=== PATIENT | female | born 1970 | race Caucasian/White ===

== ENCOUNTER → 2017-04-07 | Outpatient (CLI) | payer BC ==
--- NOTE | 2017-04-08 07:24 | MM ---
Reason for exam: clinical finding. Last mammogram was performed 4 years and 7 months ago. Physical Findings: Nurse Summary: A 1cm nodule in the right breast at 12:30 (nursedw). [facility] Diagnostic Mammo w CAD LUIS Bilateral CC and MLO view(s) were taken. Prior study comparison: August 25, 2012, bilateral digital screening mammo w/CAD. The breast tissue is heterogeneously dense. This may lower the sensitivity of mammography. Finding: There is a 12 mm obscured oval mass in the upper inner quadrant, anterior position of the right breast, skin based. These results were verbally communicated with the patient and result sheet given to the patient on 04/07/17. ASSESSMENT: Incomplete: need additional imaging evaluation, BI-RAD 0 RECOMMENDATION: Ultrasound of the right breast.
--- NOTE | 2017-04-08 07:35 | USB ---
Reason for exam: clinical finding. US Breast Limited RT Right breast ultrasound demonstrates a 15 x 5 x 13mm oval, subcutaneous, vascular structure at 12-1 o'clock. These results were verbally communicated with the patient and result sheet given to the patient on 04/07/17. ASSESSMENT: Probably benign, BI-RAD 3 RECOMMENDATION: Ultrasound of the right breast in 3 months. (Consider repeat ultrasound). Manage patient on a clinical basis.
== END | disposition home or self-care (01) ==
LOC: RADMAMWWP 14:48
PROVIDERS: ATTEND Family Medicine
DX: N63 Unspecified lump in breast (principal)
CPT/HCPCS: 76642; G0204

== ENCOUNTER 2017-04-11 13:22 | Emergency (ER) | payer BC ==
[2017-04-11 13:44] VITALS: BP 111/75; PULSE 68; RESP 16; TEMP 96.7
[2017-04-11] MEDS ORDERED: TOPICAL SKIN ADHESIVE 1 EACH AMP TOPICAL ONE (14:00)
--- NOTE | 2017-04-11 14:09 | ED ---
Wound/Laceration HPI - General Chief Complaint: Wound/Laceration Stated Complaint: laceration right pinky Time Seen by Provider: 04/11/17 13:45 Source: patient, RN notes reviewed, old records reviewed Mode of arrival: ambulatory Limitations: no limitations - History of Present Illness Initial Comments: 46-year-old female presents emergency room chief complaint of a laceration over the distal end of her right pinky. Patient reports that she cut it while she was washing dishes. She denies any fever or chills or associates patient reports she has full range of motion of the finger but it is painful whenever she bends the distal end because the wound stretches. She denies any peripheral paresthesias. She reports her tetanus shot is up-to-date.Patient denies any recent fever, chills, shortness of breath, chest pain, back pain, abdominal pain, nausea vomiting, numbness or tingling, dysuria or hematuria, constipation or diarrhea, headaches or visual changes, or any other current symptoms - Related Data Allergies Allergy/AdvReac Type Severity Reaction Status Date / Time No Known Allergies Allergy Verified 04/07/17 15:17 Review of Systems ROS Statement: Those systems with pertinent positive or pertinent negative responses have been documented in the HPI. ROS Other: All systems not noted in ROS Statement are negative. Past Medical History Additional Past Medical History / Comment(s): Migraine headaches History of Any Multi-Drug Resistant Organisms: None Reported Past Surgical History: Section, Cholecystectomy, Uterine Ablation Smoking Status: Never smoker Past Alcohol Use History: Occasional Past Drug Use History: None Reported General Exam - General Exam Comments Initial Comments: Well-appearing 46 old female. No acute distress. Limitations: no limitations General appearance: alert, in no apparent distress Head exam: Present: atraumatic, normocephalic, normal inspection Eye exam: Present: normal appearance, PERRL, EOMI. Absent: scleral icterus, conjunctival injection, periorbital swelling ENT exam: Present: normal exam, mucous membranes moist Neck exam: Present: normal inspection. Absent: tenderness, meningismus, lymphadenopathy Respiratory exam: Present: normal lung sounds bilaterally. Absent: respiratory distress, wheezes, rales, rhonchi, stridor Cardiovascular Exam: Present: regular rate, normal rhythm, normal heart sounds. Absent: systolic murmur, diastolic murmur, rubs, gallop, clicks GI/Abdominal exam: Present: soft, normal bowel sounds. Absent: distended, tenderness, guarding, rebound, rigid Extremities exam: Present: normal inspection, full ROM, normal capillary refill , other (She has a superficial laceration extending 1 cm distal right pinky. No evidence of laceration within the nailbed. She does have full range of motion and normal sensation distally.). Absent: tenderness, pedal edema, joint swelling, calf tenderness Back exam: Present: normal inspection Neurological exam: Present: alert, oriented X3, CN II-XII intact Psychiatric exam: Present: normal affect, normal mood Skin exam: Present: warm, dry, intact, normal color. Absent: rash Course Vital Signs 04/11/17 13:39 Temperature 96.7 F L Pulse Rate 68 Respiratory 16 Rate Blood Pressure 111/75 O2 Sat by Pulse 100 Oximetry Medical Decision Making - Medical Decision Making 46-year-old female presents emergency room chief complaint of a laceration over the distal end of her right pinky. Patient reports that she cut it while she was washing dishes. She denies any fever or chills or associates patient reports she has full range of motion of the finger but it is painful whenever she bends the distal end because the wound stretches. Patient's laceration was really irrigated and closed with Dermabond. She does have full range of motion of the distal finger. She was given a Band-Aid and a finger splint so that she does not reopen the laceration. Patient agrees to treatment plan will comply. Discussed monitoring for any signs of infection. Return parameters were discussed. Disposition Clinical Impression: Laceration of right little finger Disposition: HOME SELF-CARE Condition: Good Instructions: Finger Laceration (ED) Additional Instructions: Patient is to monitor for any signs of infection including redness swelling or drainage. Follow-up with her primary care provider if symptoms occur. Keep the finger splint on whenever you're doing things begin to get off to take a shower. Do not pick at the Dermabond adhesive, patient should allowed to fall off on its own. Return to the emergency department if any alarming signs or symptoms occur. Referrals: eBnita Garcia DO [Primary Care Provider] - 1-2 days Time of Disposition: 14:22
== END 2017-04-11 14:35 | disposition home or self-care (01) ==
LOC: EC 13:22
DX: S61.216A Laceration without foreign body of right little finger without damage to nail, initial encounter (principal); W25.XXXA Contact with sharp glass, initial encounter; Y93.G1 Activity, food preparation and clean up
CPT/HCPCS: 12001; 99283